=== PATIENT | female | born 1950 | race Caucasian/White ===

== ENCOUNTER 2017-03-27 20:49 | Emergency (ER) | payer MEDICARE, OTHER ==
[~2017-03-27] VITALS: Ht 167.6 cm; Wt 80.0 kg
[~2017-03-27 20:49] MED LIST: NAPR500T2 PO; PERC5TAB12 PO; ROBA500T PO
[2017-03-27 20:54] VITALS: BP 133/88; PULSE 61; RESP 18; TEMP 98; O2SAT 97
--- NOTE | 2017-03-27 20:58 | PD ---
HPI Chief Complaint: Edema Time Seen by Provider: 20:54 Travel History International Travel<30 days: No Contact w/Intl Traveler<30days: No Traveled to known affect area: No History of Present Illness HPI Patient is transferred from [place] stand-alone ER for an ultrasound of the left lower leg she has had swelling for the last few days and pain transferred to us to have an ultrasound to rule out DVT. 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 for them to discover this and she had surgery to remove that after that she was having physical rehabilitation to get her legs back strength and painless now today she is also swelling went to urgent care they sent her to the ER saying she needed a study to rule out a clot DVT study is ordered she describes it as a tingling numbness and she had some swelling she took ibuprofen 400 mg without much relief of the pain comes to the ER [facility] Past Medical History Gastrointestinal Disorders: Yes (cholecystectomy, appendectomy) Past Surgical History Appendectomy: Yes Gynecologic Surgery: Yes (Left ovary removed) Other Surgery: Yes (Cervical spine sx) Social History Alcohol Use: No Tobacco Use: Yes Substance Use: No Allergies-Medications (Allergen,Severity, Reaction): Coded Allergies: lactose (Verified Allergy, Severe, 03/27/17) doxycycline (Verified Allergy, Unknown, 03/27/17) Reported Meds & Prescriptions Reported Meds & Active Scripts Active Ibuprofen 600 Mg Tab 600 Mg PO Q6H PRN Neurontin (Gabapentin) 100 Mg Cap 100 Mg PO TID Physical Exam Narrative GENERAL: Nontoxic in no distress SKIN: Warm and dry. HEAD: Atraumatic. Normocephalic. EYES: Pupils equal and round. No scleral icterus. No injection or drainage. ENT: No nasal bleeding or discharge. Mucous membranes pink and moist. NECK: Trachea midline. No JVD. CARDIOVASCULAR: Regular rate and rhythm. RESPIRATORY: No accessory muscle use. Clear to auscultation. Breath sounds equal bilaterally. Back has a midline T7-9 scar midline healing well GASTROINTESTINAL: Abdomen soft, non-tender, nondistended. Hepatic and splenic margins not palpable. MUSCULOSKELETAL: Extremities left anterior tibial tidwell has sobriety-looking plaques there is no swelling or calf is not swollen ankle was not swollen without clubbing, cyanosis, or edema. No obvious deformities. NEUROLOGICAL: Awake and alert. No obvious cranial nerve deficits. Motor grossly within normal limits. Five out of 5 muscle strength in the arms and legs. Normal speech. PSYCHIATRIC: Appropriate mood and affect; insight and judgment normal. Data Data Last Documented VS Vital Signs Date Time Temp Pulse Resp B/P (MAP) Pulse Ox O2 Delivery O2 Flow Rate FiO2 03/27/17 20:54 98.0 61 18 133/88 (103) 97 Orders Orders Us Leg Venous Doppler (03/27/17 ) Ed Discharge Order (03/27/17 22:41) MDM Medical Decision Making Medical Screen Exam Complete: Yes Emergency Medical Condition: Yes Differential Diagnosis DVT versus peripheral neuropathy versus cord compression versus lesion Narrative Course Ultrasound of the lower leg is negative for DVT my exam I feel that this is peripheral neuropathy postoperative inflammation possibly from over working her legs walking and patient is given Neurontin prescription to try and follow-up with her doctor for more medication if it helps continue ibuprofen and Neurontin Diagnosis Primary Impression: Peripheral neuropathy Patient Instructions: General Instructions, Peripheral Neuropathy (ED) Scripts Ibuprofen (Ibuprofen) 600 Mg Tab 600 MG PO Q6H Y for Pain/Inflammation, #40 TAB 0 Refills Prov: Asa Bowman MD 03/27/17 Gabapentin (Neurontin) 100 Mg Cap 100 MG PO TID, #20 CAP 1 Refill Prov: Asa Bowman MD 03/27/17 Disposition: 01 DISCHARGE HOME Condition: Good Asa Bowman MD Mar 27, 2017 20:58
--- NOTE | 2017-03-27 21:40 | RADRPT ---
EXAM DATE/TIME: 03/27/2017 21:19 [place] COMPARISON: No previous studies available for comparison. INDICATIONS : Left leg swelling. MEDICAL HISTORY : Left leg swelling. SURGICAL HISTORY : Appendectomy. Cholecystectomy. Left oophorectomy. Cervical spine surgery. ENCOUNTER: Initial ACUITY: 1 day PAIN SCORE: 2/10 LOCATION: Left leg. TECHNIQUE: Venous ultrasound of the leg was performed from the inguinal ligament to the proximal calf. Real-xochitl e, color Doppler and spectral tracing, compression and augmentation techniques were used. FINDINGS: There is normal compressibility of the deep venous system from the inguinal region to the proximal ca lf. No echogenic clot is seen in the lumen of the common femoral, femoral, popliteal, and posterior tibial veins. There is a normal response of the venous system to proximal and distal augmentation an d respiration. CONCLUSION: Negative study. No venous thrombosis of the left lower extremity. Theo Moncada MD on March 27, 2017 at 21:37 Board Certified Radiologist. This report was verified electronically.
[2017-03-27] MEDS ORDERED: NEUR100C PO (22:37)
[2017-03-27] MEDS ORDERED: IBUP-232 PO (22:39)
== END 2017-03-27 22:55 | disposition home or self-care (01) ==
LOC: NEPC 20:49
DX: G62.9 Polyneuropathy, unspecified (principal); Z98.890 Other specified postprocedural states; Z72.0 Tobacco use; Z88.8 Allergy status to other drugs, medicaments and biological substances
CPT/HCPCS: 93971; 99281